=== PATIENT | male | born 1935 | race Caucasian/White ===

== ENCOUNTER 2022-12-13 13:52 | Outpatient (AMB) | payer MEDICARE, SELFPAY ==
[2022-12-13 14:04] VITALS: BP 134/62; PULSE 94; O2SAT 93; BMI 24.6
--- NOTE | 2022-12-13 14:04 | MHC.OFFVIS ---
Intake Vital Signs 12/13/22 14:04 Height 5 ft 8 in Weight 162 lb BMI 24.6 BP 134/62 Blood Pressure Location Lt brachial Position Sitting Pulse 94 Pulse Source Pulse Oximeter Pulse Oximetry (%) 93 Oxygen Delivery Method Room Air Intake Visit Reasons: Abnormal PFT Travel Assistant Required: No Carroting Machine Operator: Carroting Machine Operator offered & declined Accompanied by: Self / Same As Patient Allergies No Known Allergies [No Known Allergies*] Allergy (Unverified 12/13/22 14:07) Medication List - Last Reconciled 12/13/22 by Jada Loza LPN atorvastatin 40 mg PO DAILY clopidogrel (Plavix) 75 mg PO DAILY levothyroxine 25 mcg PO DAILY multivitamin 1 tab PO DAILY omeprazole 20 mg PO DAILY tamsulosin 0.4 mg PO DAILY triamterene-hydrochlorothiazid 37.5-25 mg 1 tab PO DAILY HPI Abnormal PFT HPI Details Adam is a pleasant 86 year old male, former smoker with 100 pack year history, quit 20 years ago, with underlying history of colorectal cancer s/p surgical resecetion 2017 (no chemo/radiation), skin cancer 2019 ( believes melanoma), CAD, HTN, BPH, AAA and PVD. He was referred by PCP after chest CT revealed 13 mm pulmonary nodule. He had a prior CT chest in 2018, report not available. He reports intermittent dry cough and dyspnea with stairs and hills, otherwise denies significant respiratory symptoms. He reports likely occupational exposures, possibly asbestos. He was in the , serving the [employer]. He reports father, smoker, with lung cancer. Of note, he reportedly had a stress test recently that was unremarkable with [facility]. [facility] Medical History (Updated 12/15/22 @ 13:48 by Kimberly Coello NP) History of colon cancer AAA (abdominal aortic aneurysm) Infrarenal abdominal aortic aneurysm (AAA) without rupture LBBB (left bundle branch block) PVD (peripheral vascular disease) Hypertension Hyperlipidemia Hypothyroidism GERD (gastroesophageal reflux disease) BPH (benign prostatic hyperplasia) Surgical History (Updated 12/12/22 @ 14:28 by Gabby Hernandez PA-C) History of esophagogastroduodenoscopy (EGD) History of colonoscopy History of right knee surgery History of carotid endarterectomy History of colon resection Social History (Updated 12/13/22 @ 14:11 by Jada J Daog, COMPOSITION WORKER) Patient Tobacco Use Status: Former Tobacco user Tobacco use type: Cigarette Cigarette Packs Per Day: 2 Years Smoked: 50 Smoked in Last 30 Days: No Review of Systems Const Denies chills, Denies excessive sweating, Denies fever(s), Denies headache(s) and Denies night sweats Eyes Denies dry eyes, Denies irritation and Denies itchy eyes ENT Reports Normal hearing present and Denies headache(s) Card Denies chest pain, Denies chest pain at rest, Denies chest pain with activity, Denies claudication, Denies leg edema, Denies orthopnea and Denies paroxysmal nocturnal dyspnea Resp Denies chest congestion, Denies excessive phlegm production, Denies pain on inspiration, Denies pain with cough, Denies stridor and Denies wheezing Musc Denies myalgias Neuro Reports Normal hearing present and Denies headache(s) Endo Denies excessive sweating Gaetano/Lymph Denies lymphadenopathy Aller/Immun Denies itchy eyes, Denies seasonal rhinorrhea and Denies wheezing Physical Exam Vital Signs: Last Vital Signs Pulse 94 12/13/22 14:04 BP 134/62 12/13/22 14:04 Pulse Ox 93 12/13/22 14:04 Oxygen Delivery Method Room Air 12/13/22 14:04 BMI result Body Mass Index 24.6 Const General: cooperative, healthy appearing, comfortable, no acute distress, well developed and alert Orientation/consciousness: patient oriented x3 Limitations: no limitations HEENT Head: Yes normal to inspection, Yes normocephalic and Yes atraumatic Ears: hearing grossly normal bilaterally and external ears normal Eyes General: appearance normal, both eyes and all related structures Eyelids: Yes eyelids normal Sclerae: sclerae normal EOM: EOMs intact bilaterally Neck Neck: Yes normal visual inspection and Yes no lymphadenopathy Lymphatic: no lymphadenopathy noted Chest Chest palpation & inspection: normal inspection of the chest Resp Effort & Inspection: normal respiratory effort, able to speak in complete sentences, no audible wheezes, no cough, no stridor, not tachypneic, no tripod positioning and no use of accessory muscles Auscultation: clear to auscultation bilaterally Cardio Jugular venous distension: no JVD Rate: regular rate Rhythm: regular rhythm Skin Other: warm, dry General skin exam: no rashes or lesions noted Neuro General: patient oriented x3 Cranial nerves: Yes Normal hearing present Cognition (Neuro): normal cognition Gait exam (Neuro): Normal gait present Extrem General: Yes normal to inspection, Yes capillary refill normal, Yes no clubbing, cyanosis or edema and Yes no pedal edema Psych Appearance: grossly normal and well kempt Speech and movement: Normal speech and movement present and Clear speech present Affect: normal affect Attitude: cooperative Thought process: Normal thought process present Thought content: Normal thought content present Insight: Good insight present (Psych) Judgement: Good judgement present (Psych) Office Procedures 6 Minute Walk Time:: 15:23 SPO2 % at rest: 95 Pulse at rest: 78 SPO2 % during excercise: 92 Pulse during excercise: 110 SPO2 % after excercise: 95 Pulse after excercise: 96 Distance in yards walked: 1,000 Lenin Score: 7 Performance Observations:: Patient walked on level ground slowly with the use of a walker. (Patient with arthritis of left hip) Patient was able to maintain O2 saturation of 92% or greater during the entire walk..His pulse rate was 110 or less. Patient reports his hip causes considerable discomfort when walking and he does get short of breath. No supplemental oxygen was necessary at this time. [id number] - 6 Minute Walk Results Reviewed Results Reviewed: PROCEDURE: CT CHEST without CONTRAST INDICATION: Follow up 4mm left lung nodule. TECHNIQUE: CT of the chest was performed without contrast. Automated mA/kV exposure control was utilized and patient examination was performed in strict accordance with principles of ALARA. RADIATION AMOUNT: 395.40 mGy-cm. COMPARISON: CT AP 05/08/2017 (report only). FINDINGS: The heart is normal in size without pericardial effusion. Thoracic lymph nodes are not enlarged. There is no pleural effusion, pleural thickening, or pneumothorax. The airways are patent. Severe emphysema. There are several pulmonary nodules, series 4: 4 mm left lower lobe image 45 4 mm left lower lobe image 47 13 mm left lower lobe groundglass image 42 Cholelithiasis. Multiple renal cysts.. Mild compression deformity of T2 age-indeterminate, with diffuse sclerosis of the vertebral body. No other significant bone lesions are identified. IMPRESSION: Scattered pulmonary nodules including a 13 mm left lower lobe groundglass pulmonary nodule. Follow-up suggested in [address], according to Fleischner criteria Incidental mild compression deformity of T2, age-indeterminate with diffuse sclerosis of the vertebral body. Correlate for any focal tenderness. Correlate for any history of neoplasm. Finding could be further evaluated with a bone scan. Kee Barnett MD Signed by MD Narciso Contreras provided for [facility] Assessment & Plan Assessment & Plan (1) COPD (chronic obstructive pulmonary disease): Code(s): J44.9 - Chronic obstructive pulmonary disease, unspecified (2) Pulmonary nodule 1 cm or greater in diameter: Code(s): R91.1 - Solitary pulmonary nodule Plan Adam presents to discuss findings on recent chest CT from 11/01/22 which revealed scattered pulmonary nodules including a 13 mm left lower lobe groundglass pulmonary nodule. He did have a prior chest CT in 2018 but the report is not available today, will attempt to obtain. At this time, he denies any significant respiratory symptoms and is not interested in trialing any inhalers for COPD. 6MWT performed due to decreased DLCO of 36% and dyspnea with moderate exertion. There is no need for supplemental oxygen at this time. Given his personal history of cancer, family history of cancer and smoking history, will revaluate the 13 mm nodule with a follow up chest CT in 3 months, as he is high risk. All questions were answered and patient is in agreement of plan. Orders: Orders CT chest wo IV con 01/31/23 R91.1 - Solitary pulmonary nodule AMB 6 minute walk 12/13/22 R06.09 - Other forms of dyspnea Coding Level of Care Code New Pt Level 4 (18852) Diagnoses COPD (chronic obstructive pulmonary disease) J44.9 Pulmonary nodule 1 cm or greater in diameter R91.1 CPT Codes Coding ([id number])
[2022-12-13 15:47] VITALS: PULSE 78; O2SAT 95
== END 2022-12-14 09:14 | disposition home or self-care (01) ==
PROVIDERS: PCP Physician Assistant Medical; Referring Provider Physician Assistant Medical; Visit Provider Nurse Practitioner Family
DX: J44.9 Chronic obstructive pulmonary disease, unspecified (principal); R91.1 Solitary pulmonary nodule
CPT/HCPCS: 94618; 99204

== ENCOUNTER → 2022-12-13 13:52 | Outpatient (BNVA) | payer MEDICARE, SELFPAY | PROVIDERS: PCP Physician Assistant Medical; Referring Provider Physician Assistant Medical; Visit Provider Nurse Practitioner Family | DX: J44.9 Chronic obstructive pulmonary disease, unspecified (principal); R91.1 Solitary pulmonary nodule | CPT/HCPCS: 94618; 99202 ==

== ENCOUNTER 2023-08-29 14:59 | Outpatient (AMB) | payer MEDICARE, SELFPAY ==
--- NOTE | 2023-08-29 15:02 | MHC.OFFVIS ---
Vital Signs 08/29/23 15:03 Height 5 ft 8 in Weight 148 lb 8 oz BMI 22.6 BP 160/72 H Blood Pressure Location Rt brachial Position Sitting Pulse 87 Pulse Source Pulse Oximeter Pulse Oximetry (%) 95 Oxygen Delivery Method Room Air Intake Visit Reasons: COPD Allergies No Known Allergies [No Known Allergies*] Allergy (Unverified 08/29/23 15:06) HPI HPI COPD: Details: Adam is a pleasant 87 year old male, former smoker with 100 pack year history, quit 20 years ago, with underlying history of colorectal cancer s/p surgical resecetion 2017 (no chemo/radiation), skin cancer 2019 ( believes melanoma), CAD, HTN, BPH, AAA and PVD. He was initially referred by PCP after chest CT 10/2022 revealed 13 mm pulmonary nodule. He reports intermittent dry cough and dyspnea with stairs and hills, otherwise denies significant respiratory symptoms. Since the last visit, he has undergone hip replacement s/p fall, recovering well. Today he presents to review chest CT. [facility] Medical History (Updated 12/15/22 @ 13:48 by Kimberly Coello NP) History of colon cancer AAA (abdominal aortic aneurysm) Infrarenal abdominal aortic aneurysm (AAA) without rupture LBBB (left bundle branch block) PVD (peripheral vascular disease) Hypertension Hyperlipidemia Hypothyroidism GERD (gastroesophageal reflux disease) BPH (benign prostatic hyperplasia) Surgical History (Updated 12/12/22 @ 14:28 by Gabby Hernandez PA-C) History of esophagogastroduodenoscopy (EGD) History of colonoscopy History of right knee surgery History of carotid endarterectomy History of colon resection Social History Patient Tobacco Use Status: Former Tobacco user Tobacco use type: Cigarette Cigarette Packs Per Day: 2 Years Smoked: 50 Review of Systems Const Denies chills, Denies excessive sweating, Denies fever(s), Denies headache(s) and Denies night sweats Eyes Denies dry eyes, Denies irritation and Denies itchy eyes ENT Reports Normal hearing present and Denies headache(s) Card Denies chest pain, Denies chest pain at rest, Denies chest pain with activity, Denies claudication, Denies leg edema, Denies orthopnea and Denies paroxysmal nocturnal dyspnea Resp Denies chest congestion, Denies excessive phlegm production, Denies pain on inspiration, Denies pain with cough, Denies stridor and Denies wheezing Musc Denies myalgias Neuro Reports Normal hearing present and Denies headache(s) Endo Denies excessive sweating Gaetano/Lymph Denies lymphadenopathy Aller/Immun Denies itchy eyes, Denies seasonal rhinorrhea and Denies wheezing Physical Exam Vital Signs: Last Vital Signs Pulse 87 08/29/23 15:03 BP 160/72 H 08/29/23 15:03 Pulse Ox 95 08/29/23 15:03 Oxygen Delivery Method Room Air 08/29/23 15:03 BMI result Body Mass Index 22.6 Const General: cooperative, healthy appearing, comfortable, no acute distress, well developed and alert Orientation/consciousness: patient oriented x3 Limitations: no limitations HEENT Head: Yes normal to inspection, Yes normocephalic and Yes atraumatic Ears: hearing grossly normal bilaterally and external ears normal Eyes General: appearance normal, both eyes and all related structures Eyelids: Yes eyelids normal Sclerae: sclerae normal EOM: EOMs intact bilaterally Neck Neck: Yes normal visual inspection and Yes no lymphadenopathy Lymphatic: no lymphadenopathy noted Chest Chest palpation & inspection: normal inspection of the chest Resp Effort & Inspection: normal respiratory effort, able to speak in complete sentences, no audible wheezes, no cough, no stridor, not tachypneic, no tripod positioning and no use of accessory muscles Auscultation: clear to auscultation bilaterally Cardio Jugular venous distension: no JVD Rate: regular rate Rhythm: regular rhythm Skin Other: warm, dry General skin exam: no rashes or lesions noted Neuro General: patient oriented x3 Cranial nerves: Yes Normal hearing present Cognition (Neuro): normal cognition Extrem General: Yes normal to inspection, Yes capillary refill normal, Yes no clubbing, cyanosis or edema and Yes no pedal edema Psych Appearance: grossly normal and well kempt Speech and movement: Normal speech and movement present and Clear speech present Affect: normal affect Attitude: cooperative Thought process: Normal thought process present Thought content: Normal thought content present Insight: Good insight present (Psych) Judgement: Good judgement present (Psych) Assessment & Plan Assessment & Plan (1) COPD (chronic obstructive pulmonary disease): Code(s): J44.9 - Chronic obstructive pulmonary disease, unspecified Category: Medical (2) Pulmonary nodule 1 cm or greater in diameter: Code(s): R91.1 - Solitary pulmonary nodule Category: Medical Plan Reviewed chest CT from [facility] which was stable. Given his personal history of cancer, family history of cancer and smoking history. Will repeat in 6 months and if stable will send for follow up CT in 1 year. All questions were answered and patient is in agreement of plan. Will follow up to review results or sooner if needed. Orders: Orders CT chest wo IV con 2 Months R91.1 - Solitary pulmonary nodule Coding Level of Care Code Est Pt Level 3 (77624) Diagnoses COPD (chronic obstructive pulmonary disease) J44.9 Pulmonary nodule 1 cm or greater in diameter R91.1
[2023-08-29 15:03] VITALS: BP 160/72; PULSE 87; O2SAT 95; BMI 22.6
== END 2023-08-29 15:35 | disposition home or self-care (01) ==
PROVIDERS: PCP Physician Assistant Medical; Visit Provider Nurse Practitioner Family
DX: J44.9 Chronic obstructive pulmonary disease, unspecified (principal); R91.1 Solitary pulmonary nodule
CPT/HCPCS: 99213

== ENCOUNTER → 2023-08-29 14:59 | Outpatient (BNVA) | payer MEDICARE, SELFPAY | PROVIDERS: PCP Physician Assistant Medical; Visit Provider Nurse Practitioner Family | DX: J44.9 Chronic obstructive pulmonary disease, unspecified (principal); R91.1 Solitary pulmonary nodule; Z87.891 Personal history of nicotine dependence | CPT/HCPCS: 99212 ==